=== PATIENT | female | born 1995 | race African-American/Black ===

== ENCOUNTER 2019-10-20 20:31 | Inpatient (IN) ==
[2019-10-21 01:48] LABS: Apearance,Urine CLEAR (Clear); Bacteria,Urine Occasional /HPF (Few); Bilirubin,Urine Negative (Negative); Blood, Urine Moderate mg/dL (Negative); Glucose,Urine (UA) Negative (Negative); Granular Casts,Urine 3 /LPF (0-1); Hyaline Casts,Urine 7 /LPF (0-3); Ketones,Urine Negative (Negative); Mucus,Urine Occasional /LPF (Occasional); Nitrite,Urine Negative (Negative); Protein,Urine 100 MG/DL; RBC,Urine 36 /HPF (0-4); Squamous Epithelial Cell,Urine Occasional /HPF (0-10); Urine Color Yellow (Yellow); Urine Specific Gravity 1.011 (1.001-1.035); Urine Urobilinogen < 2.0 EU/DL (0.2-1.0); WBC,Urine 3 /HPF (0-6)
[2019-10-21] MEDS ORDERED: hydrALAZINE 20 MG/1 ML VIAL IM STA (02:32)
[2019-10-21 04:20] LABS: Hematocrit 24.7 VOL% (35.7-47.0); Hemoglobin 7.8 GM/DL (12.0-16.0); Immature Granulocytes % 1.9 %; Immature Granulocytes Absolute 0.17 #; Lymphocytes % 11.4 % (21.3-54.2); Mean Corpuscular HGB Conc 31.6 GM/DL (32-36); Mean Corpuscular Volume 94.3 FL (87-102); Mean Platelet Volume 10.2 FL (9.6-12.0); Monocytes % 9.7 % (1.7-12.7); Platelet Count 190 T/CUMM (130-400); Red Blood Count 2.62 MC/CUMM (3.8-5.5); Red Cell Distribution Width 15.8 % (9.3-17.3); White Blood Count 8.9 T/CUMM (4-12)
[2019-10-21 04:51] LABS: PT Patient Result 10.3 SECS (9.8-11.9); Partial Thromboplastin Time < 20.0 SECS (23.9-33.8)
[2019-10-21 04:52] LABS: Alanine Aminotransferase 19 U/L (13-56); Alkaline Phosphatase 64 U/L (45-117); Aspartate Amino Transferase 15 U/L (0-37); Bilirubin,Total < 0.39 MG/DL (0.2-1.0); Blood Urea Nitrogen 101 MG/DL (7-18); Calcium 7.5 MG/DL (8.5-10.1); Estimated Glom Filtration Rate 12 ML/MIN; Glucose 88 MG/DL (74-106); Total Protein 5.8 G/DL (6.4-8.3); Troponin I < 0.015 NG/ML (0.00-0.045)
[2019-10-21] MEDS ORDERED: hydrALAZINE 20 MG/1 ML VIAL IV STA (04:57)
[2019-10-21] MEDS ORDERED: ENOXAPARIN 100 MG/ML SYRINGE SUBCUT STA (05:07)
[2019-10-21] MEDS ORDERED: FUROSEMIDE 40 MG/4 ML VIAL IV STA (05:09)
[2019-10-21] MEDS ORDERED: FUROSEMIDE 40 MG/4 ML VIAL ONE (05:10)
[2019-10-21] MEDS ORDERED: GLUCAGON 1 MG VIAL IM PRN (05:59)
[2019-10-21] MEDS ORDERED: NICOTINE 21 MG/24 HR PATCH TRANSDERM PRN (05:59)
[2019-10-21] MEDS ORDERED: DEXTROSE 50% 25 GM/50 ML VIAL IV PRN (05:59)
[2019-10-21] MEDS: ONDANSETRON 4 MG/2 ML VIAL IV PRN ×2 (06:31→14:30)
[2019-10-21] MEDS: ACETAMINOPHEN 325 MG TABLET PO PRN ×2 (09:35→14:26)
[2019-10-21] MEDS: NICOTINE 21 MG/24 HR PATCH TRANSDERM SCH (09:35)
[2019-10-21] MEDS: APIXABAN 5 MG TABLET PO SCH ×2 (09:35→21:53)
[2019-10-21 13:19] LABS: Apearance,Urine Slightly Hazy (Clear); Bilirubin,Urine Negative (Negative); Blood, Urine Large mg/dL (Negative); Glucose,Urine (UA) Negative (Negative); Hyaline Casts,Urine 1 /LPF (0-3); Ketones,Urine Negative (Negative); Mucus,Urine Occasional /LPF (Occasional); Nitrite,Urine Negative (Negative); Protein,Urine 100 MG/DL; RBC,Urine 215 /HPF (0-4); Squamous Epithelial Cell,Urine Occasional /HPF (0-10); Urine Color Yellow (Yellow); Urine Specific Gravity 1.011 (1.001-1.035); Urine Urobilinogen < 2.0 EU/DL (0.2-1.0); WBC,Urine 3 /HPF (0-6)
[2019-10-21 13:58] LABS: Microalbum/Creat Ratio Random 1504.9 RATIO (0-30)
[2019-10-21] MEDS: metOLazone 5 MG TABLET PO SCH ×2 (14:26→16:41)
[2019-10-21] MEDS: DOXYCYCLINE HYCLATE 100 MG CAPSULE PO SCH ×3 (14:26→21:53)
[2019-10-21] MEDS: methylPREDNISolone SOD SUC 125 MG/2 ML VIAL IV SCH ×2 (14:27→21:58)
[2019-10-21] MEDS: FUROSEMIDE 40 MG/4 ML VIAL IV SCH ×2 (14:27→22:02)
[2019-10-21] MEDS: hydrALAZINE 20 MG/1 ML VIAL IV PRN (15:00)
[2019-10-21] MEDS: MORPHINE 4 MG/1 ML VIAL IV PRN (21:54)
[2019-10-21] MEDS: PANTOPRAZOLE 40 MG VIAL IV SCH (22:00)
[2019-10-21] MEDS: PROMETHAZINE INJ 25 MG in SODIUM CHLORIDE 0.9% 50 ML IV PRN (22:06)
[2019-10-22] MEDS: methylPREDNISolone SOD SUC 125 MG/2 ML VIAL IV SCH ×4 (01:28→18:31)
[2019-10-22] MEDS: FUROSEMIDE 40 MG/4 ML VIAL IV SCH ×3 (06:38→20:28)
[2019-10-22] MEDS: ACETAMINOPHEN 325 MG TABLET PO PRN (06:42)
[2019-10-22 07:14] LABS: Hematocrit 21.2 VOL% (35.7-47.0); Immature Granulocytes % 2.5 %; Lymphocytes # 0.3 10*3/uL (1.4-4.0); Lymphocytes % 8.6 % (21.3-54.2); Mean Corpuscular HGB Conc 31.6 GM/DL (32-36); Mean Platelet Volume 10.3 FL (9.6-12.0); Monocytes % 1.3 % (1.7-12.7); Neutrophils % 87.6 % (38.7-73.9); Red Blood Count 2.28 MC/CUMM (3.8-5.5); Red Cell Distribution Width 15.8 % (9.3-17.3); White Blood Count 3.9 T/CUMM (4-12)
[2019-10-22 07:16] LABS: Hemoglobin 6.7 GM/DL (12.0-16.0); Platelet Count 149 T/CUMM (130-400)
[2019-10-22 07:30] LABS: Blood Urea Nitrogen 106 MG/DL (7-18); Calcium 7.8 MG/DL (8.5-10.1); Estimated Glom Filtration Rate 12 ML/MIN; Glucose 112 MG/DL (74-106); Osmolality,Calculated 308.7 MOS/KG (273-304)
[2019-10-22 08:05] LABS: Hypochromasia 2+; Ovalocytes Slight
[2019-10-22 08:16] LABS: Platelet Estimate Adequate
[2019-10-22] MEDS: APIXABAN 2.5 MG TABLET PO SCH (09:36)
[2019-10-22] MEDS: ONDANSETRON 4 MG/2 ML VIAL IV PRN (09:36)
[2019-10-22] MEDS: PANTOPRAZOLE 40 MG VIAL IV SCH ×2 (09:36→20:26)
[2019-10-22] MEDS: DOXYCYCLINE HYCLATE 100 MG CAPSULE PO SCH ×2 (09:36→20:26)
[2019-10-22] MEDS: metOLazone 5 MG TABLET PO SCH (09:36)
[2019-10-22] MEDS: hydrALAZINE 20 MG/1 ML VIAL IV PRN (09:37)
[2019-10-22] MEDS: NICOTINE 21 MG/24 HR PATCH TRANSDERM SCH (09:37)
[2019-10-22] MEDS ORDERED: LABETALOL 20 MG/4 ML SYRINGE IV ONE (10:26)
[2019-10-22] MEDS ORDERED: hydrALAZINE 25 MG TABLET PO SCH (10:30)
[2019-10-22] MEDS: carvediloL 12.5 MG TABLET PO SCH ×2 (11:41→20:26)
[2019-10-22] MEDS: SCOPOLAMINE 1.5 MG PATCH TRANSDERM SCH (11:41)
[2019-10-22 12:54] LABS: Sedimentation Rate-Westergren 116 MM/HR (0-20)
[2019-10-22] MEDS: METOCLOPRAMIDE 10 MG/2 ML VIAL IV PRN ×2 (14:16→20:55)
[2019-10-22] MEDS ORDERED: SODIUM CHLORIDE 0.9% 1,000 ML IV PRN (18:10)
[2019-10-22 19:24] LABS: Amorphous Crystals,Urine Occasional /HPF (Few); Apearance,Urine Slightly Hazy (Clear); Bacteria,Urine Occasional /HPF (Few); Bilirubin,Urine Negative (Negative); Blood, Urine Large mg/dL (Negative); Glucose,Urine (UA) Negative (Negative); Hyaline Casts,Urine 4 /LPF (0-3); Ketones,Urine Negative (Negative); Mucus,Urine Occasional /LPF (Occasional); Nitrite,Urine Negative (Negative); Protein,Urine 30 MG/DL; RBC,Urine 88 /HPF (0-4); Squamous Epithelial Cell,Urine Occasional /HPF (0-10); Urine Color Yellow (Yellow); Urine Specific Gravity 1.009 (1.001-1.035); Urine Urobilinogen < 2.0 EU/DL (0.2-1.0); WBC,Urine <1 /HPF (0-6)
[2019-10-23] MEDS: methylPREDNISolone SOD SUC 125 MG/2 ML VIAL IV SCH ×4 (03:19→18:11)
[2019-10-23] MEDS: ACETAMINOPHEN 325 MG TABLET PO PRN ×2 (06:52→14:05)
[2019-10-23] MEDS: FUROSEMIDE 40 MG/4 ML VIAL IV SCH ×3 (06:55→21:34)
[2019-10-23 09:05] LABS: Hematocrit 26.8 VOL% (35.7-47.0); Hemoglobin 8.9 GM/DL (12.0-16.0); Immature Granulocytes Absolute 0.05 #; Lymphocytes # 0.3 10*3/uL (1.4-4.0); Mean Corpuscular HGB Conc 33.2 GM/DL (32-36); Mean Corpuscular Volume 87.3 FL (87-102); Mean Platelet Volume 10.6 FL (9.6-12.0); Monocytes % 3.5 % (1.7-12.7); Neutrophils % 89.5 % (38.7-73.9); Platelet Count 147 T/CUMM (130-400); Red Blood Count 3.07 MC/CUMM (3.8-5.5); Red Cell Distribution Width 16.3 % (9.3-17.3); White Blood Count 4.9 T/CUMM (4-12)
[2019-10-23] MEDS: APIXABAN 2.5 MG TABLET PO SCH ×2 (09:30→21:29)
[2019-10-23] MEDS: metOLazone 5 MG TABLET PO SCH (09:30)
[2019-10-23] MEDS: carvediloL 12.5 MG TABLET PO SCH ×2 (09:30→21:29)
[2019-10-23] MEDS: DOXYCYCLINE HYCLATE 100 MG CAPSULE PO SCH ×2 (09:30→21:29)
[2019-10-23] MEDS: PANTOPRAZOLE 40 MG VIAL IV SCH ×2 (09:31→21:29)
[2019-10-23] MEDS: NICOTINE 21 MG/24 HR PATCH TRANSDERM SCH (09:31)
[2019-10-23 09:39] LABS: % Iron Saturation 70.9 % (18-50); Ferritin 482.2 ng/ml (8-252)
[2019-10-23 09:46] LABS: Folate 11.6 NG/ML (5.4-24.0); Vitamin B12 972 PG/ML (211-911)
[2019-10-23 10:02] LABS: Calcium 7.6 MG/DL (8.5-10.1)
[2019-10-23 10:14] LABS: Sedimentation Rate-Westergren 80 MM/HR (0-20)
[2019-10-23] MEDS: METOCLOPRAMIDE 10 MG/2 ML VIAL IV PRN (14:06)
[2019-10-23] MEDS: hydrALAZINE 20 MG/1 ML VIAL IV PRN (17:08)
[2019-10-23] MEDS: MELATONIN 3 MG TABLET PO PRN (21:29)
[2019-10-24] MEDS: methylPREDNISolone SOD SUC 125 MG/2 ML VIAL IV SCH ×4 (01:14→18:27)
[2019-10-24] MEDS: ALUMINUM/MAGNES/SIMETH MAX STR 30 ML UDCUP PO PRN (02:39)
[2019-10-24] MEDS: hydrALAZINE 20 MG/1 ML VIAL IV PRN ×2 (04:28→20:28)
[2019-10-24] MEDS: FUROSEMIDE 40 MG/4 ML VIAL IV SCH ×3 (04:34→20:26)
[2019-10-24 05:24] LABS: Hematocrit 26.4 VOL% (35.7-47.0); Hemoglobin 8.6 GM/DL (12.0-16.0); Immature Granulocytes % 1.5 %; Immature Granulocytes Absolute 0.08 #; Lymphocytes # 0.3 10*3/uL (1.4-4.0); Lymphocytes % 5.2 % (21.3-54.2); Mean Corpuscular HGB Conc 32.6 GM/DL (32-36); Mean Platelet Volume 10.5 FL (9.6-12.0); Monocytes % 2.6 % (1.7-12.7); Neutrophils % 90.7 % (38.7-73.9); Platelet Count 152 T/CUMM (130-400); Red Cell Distribution Width 17.1 % (9.3-17.3); White Blood Count 5.4 T/CUMM (4-12)
[2019-10-24 05:52] LABS: Calcium 7.9 MG/DL (8.5-10.1); Osmolality,Calculated 317.7 MOS/KG (273-304)
[2019-10-24 07:32] LABS: Sedimentation Rate-Westergren 57 MM/HR (0-20)
[2019-10-24 07:56] LABS: Band Neutrophils 2 % (0-10); Eosinophils 1 % (0-10); Lymphocytes 5 % (20-55); Segmented Neutrophils 89 % (50-85); Total Cells Counted 100
[2019-10-24 07:57] LABS: Platelet Estimate Adequate
[2019-10-24 07:58] LABS: Anisocytosis 1+; Macrocytosis 1+
[2019-10-24] MEDS: metOLazone 5 MG TABLET PO SCH (09:47)
[2019-10-24] MEDS: APIXABAN 2.5 MG TABLET PO SCH ×2 (09:47→20:28)
[2019-10-24] MEDS: carvediloL 12.5 MG TABLET PO SCH ×2 (09:47→20:26)
[2019-10-24] MEDS: NICOTINE 21 MG/24 HR PATCH TRANSDERM SCH (09:49)
[2019-10-24] MEDS: PANTOPRAZOLE 40 MG VIAL IV SCH ×2 (09:50→20:27)
[2019-10-24] MEDS: DOXYCYCLINE HYCLATE 100 MG CAPSULE PO SCH ×2 (10:04→20:27)
[2019-10-24] MEDS: ONDANSETRON 4 MG/2 ML VIAL IV PRN (13:59)
[2019-10-24] MEDS: METOCLOPRAMIDE 10 MG/2 ML VIAL IV PRN (14:02)
[2019-10-24] MEDS: PROMETHAZINE INJ 25 MG in SODIUM CHLORIDE 0.9% 50 ML IV PRN (20:27)
[2019-10-25] MEDS: methylPREDNISolone SOD SUC 125 MG/2 ML VIAL IV SCH ×4 (00:38→18:41)
[2019-10-25 05:05] LABS: Hematocrit 20.7 VOL% (35.7-47.0); Hemoglobin 7.1 GM/DL (12.0-16.0); Immature Granulocytes % 1.7 %; Immature Granulocytes Absolute 0.11 #; Lymphocytes # 0.4 10*3/uL (1.4-4.0); Lymphocytes % 5.7 % (21.3-54.2); Mean Corpuscular HGB Conc 34.3 GM/DL (32-36); Mean Corpuscular Volume 85.5 FL (87-102); Mean Platelet Volume 10.2 FL (9.6-12.0); Monocytes % 3.4 % (1.7-12.7); Neutrophils % 89.2 % (38.7-73.9); Platelet Count 146 T/CUMM (130-400); Red Blood Count 2.42 MC/CUMM (3.8-5.5); Red Cell Distribution Width 16.6 % (9.3-17.3); White Blood Count 6.4 T/CUMM (4-12)
[2019-10-25 05:36] LABS: Calcium 7.8 MG/DL (8.5-10.1); Osmolality,Calculated 320.8 MOS/KG (273-304)
[2019-10-25] MEDS: FUROSEMIDE 40 MG/4 ML VIAL IV SCH ×3 (05:49→21:23)
[2019-10-25] MEDS ORDERED: SODIUM CHLORIDE 0.9% 1,000 ML IV PRN (08:14)
[2019-10-25] MEDS: metOLazone 5 MG TABLET PO SCH (09:06)
[2019-10-25] MEDS: carvediloL 12.5 MG TABLET PO SCH ×2 (09:06→21:22)
[2019-10-25] MEDS: DOXYCYCLINE HYCLATE 100 MG CAPSULE PO SCH ×2 (09:06→23:08)
[2019-10-25] MEDS: NICOTINE 21 MG/24 HR PATCH TRANSDERM SCH (09:07)
[2019-10-25] MEDS: SCOPOLAMINE 1.5 MG PATCH TRANSDERM SCH (09:07)
[2019-10-25] MEDS: APIXABAN 2.5 MG TABLET PO SCH ×2 (09:08→21:22)
[2019-10-25] MEDS: PANTOPRAZOLE 40 MG VIAL IV SCH ×2 (09:09→21:29)
[2019-10-25 09:54] LABS: Hemoglobin A1 (Alkaline) 97.1 % (96.5-98.5); Hemoglobin A2 (Alkaline) 2.9 % (1.5-3.5)
[2019-10-25] MEDS: hydrALAZINE 20 MG/1 ML VIAL IV PRN ×2 (15:44→23:08)
[2019-10-25] MEDS: ALUMINUM/MAGNES/SIMETH MAX STR 30 ML UDCUP PO PRN (21:42)
[2019-10-26] MEDS: methylPREDNISolone SOD SUC 125 MG/2 ML VIAL IV SCH ×2 (01:10→07:28)
[2019-10-26] MEDS: FUROSEMIDE 40 MG/4 ML VIAL IV SCH ×3 (05:17→21:48)
[2019-10-26 05:48] LABS: Basophils % 0.1 % (0.0-0.8); Hematocrit 32.4 VOL% (35.7-47.0); Lymphocytes % 5.9 % (21.3-54.2)
[2019-10-26 06:05] LABS: Immature Granulocytes % 1.8 %; Immature Granulocytes Absolute 0.14 #; Lymphocytes # 0.5 10*3/uL (1.4-4.0); Mean Corpuscular Volume 87.8 FL (87-102); Mean Platelet Volume 11.1 FL (9.6-12.0); Neutrophils % 88.2 % (38.7-73.9); Platelet Count 141 T/CUMM (130-400); Red Cell Distribution Width 15.8 % (9.3-17.3); White Blood Count 7.8 T/CUMM (4-12)
[2019-10-26 06:06] LABS: Red Blood Count 3.69 MC/CUMM (3.8-5.5)
[2019-10-26 06:16] LABS: Calcium 8.1 MG/DL (8.5-10.1); Osmolality,Calculated 326.8 MOS/KG (273-304)
[2019-10-26] MEDS: APIXABAN 2.5 MG TABLET PO SCH ×2 (10:09→21:39)
[2019-10-26] MEDS: carvediloL 12.5 MG TABLET PO SCH ×2 (10:09→21:39)
[2019-10-26] MEDS: metOLazone 5 MG TABLET PO SCH (10:09)
[2019-10-26] MEDS: NICOTINE 21 MG/24 HR PATCH TRANSDERM SCH (10:10)
[2019-10-26] MEDS: PANTOPRAZOLE 40 MG VIAL IV SCH ×2 (10:11→21:43)
[2019-10-26] MEDS: DOXYCYCLINE HYCLATE 100 MG CAPSULE PO SCH ×2 (10:58→21:38)
[2019-10-26] MEDS: hydrALAZINE 20 MG/1 ML VIAL IV PRN (11:50)
[2019-10-26 11:54] LABS: Double Stranded DNA Antibodies > 200.0 IU/ML
[2019-10-26] MEDS: SODIUM CHLORIDE 0.65% NASAL SPRAY 45 ML BOTTLE BOTH NARES PRN ×2 (11:55→18:40)
[2019-10-26] MEDS: METOCLOPRAMIDE 10 MG/2 ML VIAL IV PRN (18:39)
[2019-10-26] MEDS: predniSONE 10 MG TABLET PO SCH (21:38)
[2019-10-26] MEDS: MYCOPHENOLATE MOFETIL 250 MG CAPSULE PO SCH (21:39)
[2019-10-26] MEDS: HYDROXYCHLOROQUINE 200 MG TABLET PO SCH (21:39)
[2019-10-27] MEDS: FUROSEMIDE 40 MG/4 ML VIAL IV SCH ×3 (04:54→22:04)
[2019-10-27] MEDS ORDERED: CLINDAMYCIN INJ 900 MG in PREMIX 1 EACH IV ONE (06:30)
[2019-10-27 06:44] LABS: Basophils % 0.1 % (0.0-0.8); Hematocrit 31.1 VOL% (35.7-47.0); Hemoglobin 10.8 GM/DL (12.0-16.0); Immature Granulocytes % 1.9 %; Immature Granulocytes Absolute 0.22 #; Lymphocytes # 0.7 10*3/uL (1.4-4.0); Lymphocytes % 5.7 % (21.3-54.2); Mean Corpuscular HGB Conc 34.7 GM/DL (32-36); Mean Corpuscular Volume 84.5 FL (87-102); Mean Platelet Volume 10.9 FL (9.6-12.0); Monocytes % 8.6 % (1.7-12.7); Neutrophils % 83.7 % (38.7-73.9); Platelet Count 149 T/CUMM (130-400); Red Blood Count 3.68 MC/CUMM (3.8-5.5); Red Cell Distribution Width 15.5 % (9.3-17.3); White Blood Count 11.7 T/CUMM (4-12)
[2019-10-27 07:03] LABS: Calcium 8.3 MG/DL (8.5-10.1); Osmolality,Calculated 328.8 MOS/KG (273-304)
[2019-10-27 07:57] LABS: Hepatitis B Core IgM Quant 0.13 Index; Hepatitis B Surface Ag Quant < 0.10 Index; Hepatitis B Surface Ag Result Negative (Negative); Hepatitis C Virus Ab Quant 0.06 Index; Hepatitis C Virus Ab Result Negative (Negative)
[2019-10-27] MEDS ORDERED: LIDOCAINE 1%/EPI INJ 20 ML VIAL ONE (08:13)
[2019-10-27] MEDS ORDERED: HEPARIN 5,000 UNIT/1 ML VIAL ONE (08:13)
[2019-10-27] MEDS ORDERED: BUPIVACAINE MPF 0.25% 30 ML VIAL ONE (08:13)
[2019-10-27] MEDS ORDERED: CLINDAMYCIN INJ 50 ML IV ONE (08:21)
[2019-10-27] MEDS ORDERED: MIDAZOLAM 2 MG/2 ML VIAL ONE (09:03)
[2019-10-27] MEDS ORDERED: propofoL 200 MG/20 ML VIAL IV ONE (09:03)
[2019-10-27] MEDS ORDERED: LIDOCAINE 2% 5 ML VIAL ONE (09:03)
[2019-10-27] MEDS ORDERED: DEXAMETHASONE 4 MG/1 ML VIAL ONE (09:04)
[2019-10-27] MEDS ORDERED: fentaNYL 100 MCG/2 ML VIAL ONE (09:04)
[2019-10-27] MEDS ORDERED: SODIUM CHLORIDE 0.9% 100 ML IV ONE (09:04)
[2019-10-27] MEDS ORDERED: ONDANSETRON 4 MG/2 ML VIAL ONE (09:04)
[2019-10-27] MEDS: metOLazone 5 MG TABLET PO SCH (13:58)
[2019-10-27] MEDS: DOXYCYCLINE HYCLATE 100 MG CAPSULE PO SCH ×2 (13:58→22:01)
[2019-10-27] MEDS: HYDROXYCHLOROQUINE 200 MG TABLET PO SCH ×2 (13:58→22:04)
[2019-10-27] MEDS: predniSONE 10 MG TABLET PO SCH ×2 (13:58→22:01)
[2019-10-27] MEDS: carvediloL 12.5 MG TABLET PO SCH ×2 (13:59→22:02)
[2019-10-27] MEDS: APIXABAN 2.5 MG TABLET PO SCH ×2 (13:59→22:03)
[2019-10-27] MEDS: MYCOPHENOLATE MOFETIL 250 MG CAPSULE PO SCH ×2 (13:59→22:01)
[2019-10-27] MEDS: PANTOPRAZOLE 40 MG VIAL IV SCH ×2 (14:02→22:03)
[2019-10-27] MEDS: NICOTINE 21 MG/24 HR PATCH TRANSDERM SCH (14:27)
[2019-10-27] MEDS: MORPHINE 4 MG/1 ML VIAL IV PRN ×2 (17:04→22:03)
[2019-10-27 21:13] LABS: Hematocrit 25.2 VOL% (35.7-47.0); Hemoglobin 8.7 GM/DL (12.0-16.0)
[2019-10-28 01:50] LABS: Hematocrit 23.7 VOL% (35.7-47.0); Hemoglobin 8.2 GM/DL (12.0-16.0)
[2019-10-28 01:54] LABS: INR 1.2; PT Patient Result 12.5 SECS (9.8-11.9)
[2019-10-28 02:40] LABS: Basophils % 0.1 % (0.0-0.8); Hematocrit 23.9 VOL% (35.7-47.0); Hemoglobin 8.2 GM/DL (12.0-16.0); Immature Granulocytes % 0.9 %; Immature Granulocytes Absolute 0.13 #; Lymphocytes # 0.5 10*3/uL (1.4-4.0); Lymphocytes % 3.3 % (21.3-54.2); Mean Corpuscular HGB Conc 34.3 GM/DL (32-36); Mean Corpuscular Volume 86.3 FL (87-102); Mean Platelet Volume 11.5 FL (9.6-12.0); Monocytes % 7.5 % (1.7-12.7); Neutrophils % 88.2 % (38.7-73.9); Platelet Count 59 T/CUMM (130-400); Red Blood Count 2.77 MC/CUMM (3.8-5.5); Red Cell Distribution Width 15.5 % (9.3-17.3); White Blood Count 13.9 T/CUMM (4-12)
[2019-10-28 04:12] LABS: Lymphocytes 5 % (20-55); Segmented Neutrophils 94 % (50-85); Total Cells Counted 100
[2019-10-28 04:13] LABS: Anisocytosis 1+; Platelet Estimate Decreased
[2019-10-28] MEDS: MORPHINE 4 MG/1 ML VIAL IV PRN (04:45)
[2019-10-28] MEDS: FUROSEMIDE 40 MG/4 ML VIAL IV SCH ×3 (06:12→21:19)
[2019-10-28 06:29] LABS: Hematocrit 22.2 VOL% (35.7-47.0); Hemoglobin 7.7 GM/DL (12.0-16.0)
[2019-10-28 06:39] LABS: INR 1.2; PT Patient Result 12.3 SECS (9.8-11.9); Partial Thromboplastin Time 27.2 SECS (23.9-33.8)
[2019-10-28] MEDS: predniSONE 10 MG TABLET PO SCH ×2 (09:19→21:19)
[2019-10-28] MEDS: carvediloL 12.5 MG TABLET PO SCH ×2 (09:19→21:19)
[2019-10-28] MEDS: MYCOPHENOLATE MOFETIL 250 MG CAPSULE PO SCH ×2 (09:19→21:19)
[2019-10-28] MEDS: metOLazone 5 MG TABLET PO SCH (09:19)
[2019-10-28] MEDS: HYDROXYCHLOROQUINE 200 MG TABLET PO SCH ×2 (09:19→21:19)
[2019-10-28] MEDS: SCOPOLAMINE 1.5 MG PATCH TRANSDERM SCH (09:20)
[2019-10-28] MEDS: PANTOPRAZOLE 40 MG VIAL IV SCH ×2 (09:23→21:20)
[2019-10-28] MEDS: ONDANSETRON 4 MG/2 ML VIAL IV PRN ×2 (09:29→13:40)
[2019-10-28 09:42] LABS: Hematocrit 24.9 VOL% (35.7-47.0); Hemoglobin 8.5 GM/DL (12.0-16.0)
[2019-10-28] MEDS: NICOTINE 21 MG/24 HR PATCH TRANSDERM SCH (10:04)
[2019-10-28] MEDS: APIXABAN 2.5 MG TABLET PO SCH (11:56)
[2019-10-28] MEDS ORDERED: HEPARIN 10,000 UNIT/10 ML VIAL IV PRN (13:10)
[2019-10-28 14:25] LABS: Hematocrit 25.1 VOL% (35.7-47.0); Hemoglobin 8.9 GM/DL (12.0-16.0)
[2019-10-28] MEDS: METOCLOPRAMIDE 10 MG/2 ML VIAL IV PRN (16:47)
[2019-10-28 17:07] LABS: Hematocrit 22.1 VOL% (35.7-47.0); Hemoglobin 7.8 GM/DL (12.0-16.0)
[2019-10-28] MEDS ORDERED: LIDOCAINE 1%/EPI INJ 20 ML VIAL MISC INJ ONE (18:23)
[2019-10-28 20:45] LABS: Hematocrit 22.6 VOL% (35.7-47.0); Hemoglobin 7.6 GM/DL (12.0-16.0)
[2019-10-28] MEDS: MELATONIN 3 MG TABLET PO PRN (23:55)
[2019-10-29] MEDS: FUROSEMIDE 40 MG/4 ML VIAL IV SCH ×2 (06:22→17:55)
[2019-10-29 06:47] LABS: Hematocrit 19.1 VOL% (35.7-47.0); Immature Granulocytes % 0.6 %; Immature Granulocytes Absolute 0.07 #; Lymphocytes # 0.4 10*3/uL (1.4-4.0); Lymphocytes % 3.5 % (21.3-54.2); Mean Corpuscular HGB Conc 33.5 GM/DL (32-36); Mean Platelet Volume 10.3 FL (9.6-12.0); Neutrophils % 90.9 % (38.7-73.9); Red Blood Count 2.17 MC/CUMM (3.8-5.5); Red Cell Distribution Width 15.3 % (9.3-17.3); White Blood Count 11.8 T/CUMM (4-12)
[2019-10-29 06:50] LABS: Hemoglobin 6.4 GM/DL (12.0-16.0); Platelet Count 25 T/CUMM (130-400)
[2019-10-29 07:01] LABS: INR 1.1; PT Patient Result 12.2 SECS (9.8-11.9); Partial Thromboplastin Time 24.5 SECS (23.9-33.8)
[2019-10-29 07:23] LABS: Anisocytosis 2+; Band Neutrophils 3 % (0-10); Lymphocytes 2 % (20-55); Platelet Estimate Decreased; Segmented Neutrophils 90 % (50-85); Total Cells Counted 100
[2019-10-29 07:24] LABS: Poikilocytosis Slight
[2019-10-29] MEDS ORDERED: SODIUM CHLORIDE 0.9% 1,000 ML IV PRN ×2 (08:29→14:33)
[2019-10-29] MEDS: predniSONE 10 MG TABLET PO SCH ×2 (09:31→20:46)
[2019-10-29] MEDS: PANTOPRAZOLE 40 MG VIAL IV SCH ×2 (09:31→20:46)
[2019-10-29] MEDS: carvediloL 12.5 MG TABLET PO SCH ×2 (09:31→20:47)
[2019-10-29] MEDS: metOLazone 5 MG TABLET PO SCH (09:31)
[2019-10-29] MEDS: MYCOPHENOLATE MOFETIL 250 MG CAPSULE PO SCH (09:38)
[2019-10-29] MEDS: NICOTINE 21 MG/24 HR PATCH TRANSDERM SCH (09:38)
[2019-10-29] MEDS: HYDROXYCHLOROQUINE 200 MG TABLET PO SCH (11:05)
[2019-10-29] MEDS: PROMETHAZINE INJ 25 MG in SODIUM CHLORIDE 0.9% 50 ML IV PRN (20:45)
[2019-10-29] MEDS: MELATONIN 3 MG TABLET PO PRN (20:46)
[2019-10-29] MEDS: APIXABAN 2.5 MG TABLET PO SCH (20:47)
[2019-10-30 06:42] LABS: Hematocrit 25.1 VOL% (35.7-47.0); Hemoglobin 8.4 GM/DL (12.0-16.0); Immature Granulocytes % 0.6 %; Immature Granulocytes Absolute 0.06 #; Lymphocytes # 0.3 10*3/uL (1.4-4.0); Lymphocytes % 2.4 % (21.3-54.2); Mean Corpuscular HGB Conc 33.5 GM/DL (32-36); Mean Platelet Volume 11.3 FL (9.6-12.0); Monocytes % 4.2 % (1.7-12.7); Neutrophils % 92.8 % (38.7-73.9); Red Blood Count 2.82 MC/CUMM (3.8-5.5); Red Cell Distribution Width 14.4 % (9.3-17.3); White Blood Count 10.4 T/CUMM (4-12)
[2019-10-30 06:50] LABS: Platelet Count 29 T/CUMM (130-400)
[2019-10-30 07:08] LABS: Albumin 2.1 G/DL (3.4-5.0); Bilirubin,Direct 0.11 MG/DL (0.0-0.20); Bilirubin,Indirect 1.2 MG/DL (0.0-1.0); Bilirubin,Total 1.3 MG/DL (0.2-1.0); Total Protein 4.8 G/DL (6.4-8.3)
[2019-10-30 08:46] LABS: Anisocytosis 1+; Band Neutrophils 1 % (0-10); Lymphocytes 4 % (20-55); Platelet Estimate Decreased; Segmented Neutrophils 92 % (50-85); Total Cells Counted 100
[2019-10-30] MEDS: predniSONE 10 MG TABLET PO SCH ×2 (09:26→20:29)
[2019-10-30] MEDS: PANTOPRAZOLE 40 MG VIAL IV SCH ×2 (09:26→20:30)
[2019-10-30] MEDS: carvediloL 12.5 MG TABLET PO SCH ×2 (09:26→20:30)
[2019-10-30] MEDS: NICOTINE 21 MG/24 HR PATCH TRANSDERM SCH (09:31)
[2019-10-30] MEDS: APIXABAN 2.5 MG TABLET PO SCH ×2 (10:05→21:36)
[2019-10-30] MEDS: MELATONIN 3 MG TABLET PO PRN (20:30)
[2019-10-30] MEDS: PROMETHAZINE INJ 25 MG in SODIUM CHLORIDE 0.9% 50 ML IV PRN (21:07)
[2019-10-31 04:08] LABS: Basophils % 0.1 % (0.0-0.8); Eosinophils % 0.1 % (0.00-10.9); Hematocrit 24.7 VOL% (35.7-47.0); Hemoglobin 8.4 GM/DL (12.0-16.0); Immature Granulocytes % 0.5 %; Immature Granulocytes Absolute 0.09 #; Lymphocytes # 0.3 10*3/uL (1.4-4.0); Lymphocytes % 1.8 % (21.3-54.2); Mean Corpuscular Volume 89.8 FL (87-102); Mean Platelet Volume 13.2 FL (9.6-12.0); Monocytes % 3.5 % (1.7-12.7); Platelet Count 43 T/CUMM (130-400); Red Blood Count 2.75 MC/CUMM (3.8-5.5); Red Cell Distribution Width 14.6 % (9.3-17.3); White Blood Count 16.8 T/CUMM (4-12)
[2019-10-31 04:14] LABS: Calcium 7.7 MG/DL (8.5-10.1); Osmolality,Calculated 293.8 MOS/KG (273-304)
[2019-10-31 04:53] LABS: Eosinophils 1 % (0-10); Hypochromasia 1+; Lymphocytes 2 % (20-55); Platelet Estimate Decreased; Segmented Neutrophils 92 % (50-85); Total Cells Counted 100
[2019-10-31] MEDS: carvediloL 12.5 MG TABLET PO SCH (09:57)
[2019-10-31] MEDS: predniSONE 10 MG TABLET PO SCH (09:57)
[2019-10-31] MEDS: APIXABAN 2.5 MG TABLET PO SCH (09:57)
[2019-10-31] MEDS: SCOPOLAMINE 1.5 MG PATCH TRANSDERM SCH (09:58)
[2019-10-31] MEDS: PANTOPRAZOLE 40 MG VIAL IV SCH (09:59)
[2019-10-31] MEDS: NICOTINE 21 MG/24 HR PATCH TRANSDERM SCH (09:59)
[2019-10-31 14:40] VITALS: BP 172/89
== END 2019-10-31 16:16 | disposition home or self-care (01) | DRG 673 ==
LOC: N.EDINP 20:31 → N.ED 20:31 → N.TELES 10-21 07:28 → SUATTDRO 10-21 12:55
PROVIDERS: ADMIT Hospitalist; ATTEND Internal Medicine